=== PATIENT | female | born 1985 | race Asian ===

== ENCOUNTER → 2023-11-21 | Day surgery (SDC) | payer OTHER ==
[~2023-11-21] MED LIST: FENTANYL CITRATE/PF 100MCG/2 ML INJ ONE; LIDOCAINE HCL 2% LOCAL INJ 5 ML SDV VIAL INJ ONE; METOCLOPRAMIDE HCL 10 MG/2ML VIAL ONE; PROPOFOL IV EMULSION 10 MG/ML 20 ML VIAL ONE; PROPOFOL IV EMULSION 10 MG/ML 50 ML VIAL IV ONE
[2023-11-21 09:05] VITALS: TEMP 97
[2023-11-21 09:45] VITALS: BP 116/83; PULSE 56; RESP 18; O2SAT 99
== END | disposition home or self-care (01) ==
LOC: EDSEX 09-02 14:30 → OR 06:13
PROVIDERS: ATTEND Internal Medicine Gastroenterology
DX: K29.50 Unspecified chronic gastritis without bleeding (principal); B96.81 Helicobacter pylori [H. pylori] as the cause of diseases classified elsewhere; D12.5 Benign neoplasm of sigmoid colon; K20.90 Esophagitis, unspecified without bleeding; K21.9 Gastro-esophageal reflux disease without esophagitis; K59.00 Constipation, unspecified; K62.5 Hemorrhage of anus and rectum; K64.8 Other hemorrhoids; M54.50 Low back pain, unspecified
CPT/HCPCS: 43239; 45380; 45385; 81025; J2001; J2470; J2704 ×2; J2765; J3010; 45378